=== PATIENT | male | born 1985 | race Caucasian/White ===

== ENCOUNTER 2019-09-21 23:16 | Emergency (ER) | payer OTHER ==
[2019-09-21 23:24] VITALS: PULSE 70; RESP 20; TEMP 98
[2019-09-21 23:30] VITALS: BP 157/90
[2019-09-21] MEDS ORDERED: LIDOCAINE 4% CREAM 5 GM TUBE TOPICAL ONE (23:37)
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
[2019-09-21 23:44] LABS: Basophils # (A) 0.1 k/uL (0-0.2); Basophils % (A) 0 %; Eosinophils # (A) 0.2 k/uL (0-0.7); Eosinophils % (A) 2 %; HCT 47.1 % (39.0-53.0); HGB 15.3 gm/dL (13.0-17.5); Lymphocytes # (A) 3.3 k/uL (1.0-4.8); Lymphocytes % (A) 29 %; MCHC 32.4 g/dL (31.0-37.0); MCV 92.7 fL (80.0-100.0); Mean Platelet Volume 10.4; Monocytes # (A) 0.4 k/uL (0-1.0); Monocytes % (A) 3 %; Neutrophils # (A) 7.3 k/uL (1.3-7.7); Neutrophils % (A) 64 %; Platelet Count 136 k/uL (150-450); RBC 5.09 m/uL (4.30-5.90); RDW 13.7 % (11.5-15.5); WBC 11.3 k/uL (3.8-10.6)
[2019-09-21 23:53] LABS: ALT 58 U/L (4-49); AST 47 U/L (17-59); African American GFR (CKD) >90 (>60 ml/min/1.73 sqM); Albumin 4.5 g/dL (3.5-5.0); Alcohol <10 mg/dL; Alkaline Phosphatase 69 U/L (38-126); Amylase 49 U/L (30-110); Anion Gap 9 mmol/L; Blood Urea Nitrogen 10 mg/dL (9-20); Calcium 9.5 mg/dL (8.4-10.2); Carbon Dioxide 23 mmol/L (22-30); Chloride 110 mmol/L (98-107); Glucose 132 mg/dL (74-99); Non-African American GFR(CKD) >90 (>60 ml/min/1.73 sqM); Potassium 3.5 mmol/L (3.5-5.1); Sodium 142 mmol/L (137-145); Total Bilirubin 0.4 mg/dL (0.2-1.3); Total Protein 7.2 g/dL (6.3-8.2)
[2019-09-22 00:03] LABS: INR 0.9 (<1.2); Prothrombin Time 9.9 sec (9.0-12.0)
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
[2019-09-22 00:08] LABS: Partial Thromboplastin Time 21.8 sec (22.0-30.0)
[2019-09-22 01:06] LABS: Appearance,Urine Clear (Clear); Bilirubin,Urine Negative (Negative); Blood,Urine Moderate (Negative); Budding Yeast,Urine Few /hpf; Color,Urine Yellow; Glucose,Urine (UA) Negative (Negative); Granular Casts,Urine 91 /lpf (0); Hyaline Casts,Urine 1 /lpf (0-2); Ketones,Urine Trace (Negative); Leukocyte Esterase,Urine Negative (Negative); Mucus,Urine Few /hpf; Nitrite,Urine Negative (Negative); PH, Urine 5.5 (5.0-8.0); Protein,Urine 1+ (Negative); RBC,Urine 115 /hpf (0-5); Specific Gravity,Urine 1.031 (1.001-1.035); Squamous Epithelial Cell,Urine <1 /hpf (0-4); Urobilinogen,Urine <2.0 mg/dL (<2.0); WBC,Urine 11 /hpf (0-5)
[2019-09-22] MEDS ORDERED: LIDOCAINE 1% INJ 10MG/ML (20 ML MDV) SQ ONE (01:16)
[2019-09-22] MEDS ORDERED: DIPH,PERTUS(ACELL)TETVAC-LF 0.5 ML VIAL IM ONE (01:16)
[2019-09-22 01:18] LABS: Amphetamine Screen,Urine Not Detected (NotDetected); Barbiturate Screen,Urine Not Detected (NotDetected); Benzodiazepines Screen,Urine Not Detected (NotDetected); Cocaine Screen,Urine Not Detected (NotDetected); Methadone Screen, Urine Not Detected (NotDetected); Opiate Screen,Urine Not Detected (NotDetected); Oxycodone Screen, Urine Not Detected (NotDetected); Phencyclidine Screen,Urine Not Detected (NotDetected); Tricyclic Antidepressant,Urine Not Detected (NotDetected); Urn Cannabinoid Scrn Detected (NotDetected)
== END 2019-09-22 03:10 | disposition home or self-care (01) ==
LOC: EC 23:16
DX: S51.811A Laceration without foreign body of right forearm, initial encounter (principal); S01.111A Laceration without foreign body of right eyelid and periocular area, initial encounter; S50.812A Abrasion of left forearm, initial encounter; R31.9 Hematuria, unspecified; F17.200 Nicotine dependence, unspecified, uncomplicated; Z88.6 Allergy status to analgesic agent; V28.4XXA Motorcycle driver injured in noncollision transport accident in traffic accident, initial encounter; Y92.410 Unspecified street and highway as the place of occurrence of the external cause
CPT/HCPCS: 99284; 12001; 12013; 90471; 36415; 93005; 86900; 86901; 80053; 82150; 83605; 83690; 84484; 85025; 85610; 85730; 86850; 81001; 80306; 80320; 71045; 90715; J2001

== ENCOUNTER 2021-03-02 11:16 | Emergency (ER) | payer OTHER ==
[2021-03-02 13:01] VITALS: BP 91/54; PULSE 78; TEMP 98.5
--- NOTE | 2021-03-02 14:03 | ED ---
URI HPI - General Chief Complaint: Upper Respiratory Infection Stated Complaint: Covid test, cough Time Seen by Provider: 03/02/21 13:42 Source: patient, RN notes reviewed Mode of arrival: ambulatory Limitations: no limitations - History of Present Illness Initial Comments: 35-year-old male presents emergency dept chief complaint of cough congestion. Patient's been sick for 1 week not showing any improvement. No fevers no sick contacts presents with multiple [id number] cough and cold medication with no relief. Patient's concerned about COVID-19. Patient denies any nausea vomiting diarrhea constipation. - Related Data Previous Rx's Medication Instructions Recorded HYDROcodone/APAP 5-325MG [[place] 5] 1 each PO Q4HR PRN #20 tab 11/10/15 Orphenadrine [Norflex] 100 mg PO Q12H PRN #12 tablet.er 11/10/15 Amoxicillin/Potassium Clav 1 tab PO Q12HR #20 tab 03/02/21 [Augmentin 875-125 Tablet] Fluticasone Nasal [place] [Flonase 2 spr EA NOSTRIL DAILY #16 gm 03/02/21 Nasal [place]] Pseudoephedrine 12Hr [Sudafed 12Hr] 120 mg PO Q12H #20 tab 03/02/21 Allergies Allergy/AdvReac Type Severity Reaction Status Date / Time aspirin AdvReac Rash/Hives Verified 03/02/21 13:01 Review of Systems ROS Statement: Those systems with pertinent positive or pertinent negative responses have been documented in the HPI. ROS Other: All systems not noted in ROS Statement are negative. Past Medical History Additional Past Medical History / Comment(s): back pain History of Any Multi-Drug Resistant Organisms: None Reported Past Surgical History: Hernia Repair Past Psychological History: Depression Smoking Status: Current every day smoker Past Alcohol Use History: Occasional Past Drug Use History: Marijuana General Exam Limitations: no limitations General appearance: alert, in no apparent distress Head exam: Present: atraumatic, normocephalic, normal inspection Eye exam: Present: normal appearance, PERRL, EOMI. Absent: scleral icterus, conjunctival injection, periorbital swelling ENT exam: Present: normal exam, normal oropharynx, mucous membranes moist Neck exam: Present: normal inspection. Absent: tenderness, meningismus, lymphadenopathy Respiratory exam: Present: rhonchi. Absent: normal lung sounds bilaterally, respiratory distress, wheezes, rales, stridor Cardiovascular Exam: Present: regular rate, normal rhythm, normal heart sounds. Absent: systolic murmur, diastolic murmur, rubs, gallop, clicks Course Vital Signs 03/02/21 12:58 Temperature 98.5 F Pulse Rate 78 Respiratory 18 Rate Blood Pressure 91/54 O2 Sat by Pulse 98 Oximetry Medical Decision Making - Medical Decision Making Patient is a no signs of distress, patient was treated for acute sinusitis covid 19 is negative. Patient agrees this plan for close follow-up return parameters were discussed. - Lab Data Lab Results 03/02/21 Range/Units 13:06 Coronavirus (PCR) Not Detected (Not Detectd) Disposition Clinical Impression: Acute upper respiratory infection Disposition: HOME SELF-CARE Condition: Stable Instructions (If sedation given, give patient instructions): Upper Respiratory Infection (ED) Additional Instructions: Please return to the Emergency Department if symptoms worsen or any other concerns. Prescriptions: Amoxicillin/Potassium Clav [Augmentin 875-125 Tablet] 1 tab PO Q12HR #20 tab Fluticasone Nasal [place] [Flonase Nasal [place]] 2 spr EA NOSTRIL DAILY #16 gm Pseudoephedrine 12Hr [Sudafed 12Hr] 120 mg PO Q12H #20 tab Is patient prescribed a controlled substance at d/c from ED?: No Referrals: None,Stated [Primary Care Provider] - 1-2 days Time of Disposition: 14:03
[2021-03-02 14:17] VITALS: RESP 20
== END 2021-03-02 14:32 | disposition home or self-care (01) ==
LOC: EC 11:16
DX: J06.9 Acute upper respiratory infection, unspecified (principal); Z20.822 Contact with and (suspected) exposure to COVID-19; F17.200 Nicotine dependence, unspecified, uncomplicated; F12.90 Cannabis use, unspecified, uncomplicated
CPT/HCPCS: 87635; 99283

== ENCOUNTER 2021-12-03 09:49 | Emergency (ER) | payer OTHER ==
[2021-12-03 10:03] VITALS: BP 144/90; PULSE 80; RESP 18; TEMP 97.5
[2021-12-03] MEDS ORDERED: MORPHINE SULFATE 4 MG/ML SYRINGE IM STA (13:09)
--- NOTE | 2021-12-03 13:48 | XR ---
EXAMINATION TYPE: XR ankle complete LT, XR foot complete LT DATE OF EXAM: 12/03/2021 CLINICAL HISTORY: Pain and swelling. TECHNIQUE: Frontal, lateral and oblique images of the left ankle and foot are obtained. COMPARISON: None. FINDINGS: There is no acute fracture/dislocation evident in the left ankle. The ankle mortise appea rs within normal limits. Small spur posterior superior aspect calcaneus. The overlying soft tissue ap pears unremarkable. There is no acute fracture or dislocation evident in the left foot. The joint spaces in the left mariajose t are preserved. Overlying soft tissue is unremarkable. IMPRESSION: As above.
[2021-12-03] MEDS ORDERED: ACET/COD 300 MG/30 MG STARTER PACK 6 TAB BTL PO STA (14:09)
--- NOTE | 2021-12-03 14:10 | ED ---
Lower Extremity Injury HPI - General Chief Complaint: Extremity Injury, Lower Stated Complaint: L foot swelling Time Seen by Provider: 12/03/21 12:33 Source: patient, family Mode of arrival: wheelchair Limitations: no limitations - History of Present Illness Initial Comments: Patient is a 36-year-old male who presents to the emergency department with a c hief complaint of left foot pain. Patient states he got a new job one week ago which requires him to stand on his feet for long time. Patient states the pain has been occurring for about 5 days, severe in nature. Reports pain all over his foot with some swelling. Denies injury. Denies numbness and tingling. Denies fever, chills, history of cellulitis. - Related Data Previous Rx's Medication Instructions Recorded HYDROcodone/APAP 5-325MG [[place] 5] 1 each PO Q4HR PRN #20 tab 11/10/15 Orphenadrine [Norflex] 100 mg PO Q12H PRN #12 tablet.er 11/10/15 Amoxicillin/Potassium Clav 1 tab PO Q12HR #20 tab 03/02/21 [Augmentin 875-125 Tablet] Fluticasone Nasal [place] [Flonase 2 spr EA NOSTRIL DAILY #16 gm 03/02/21 Nasal [place]] Pseudoephedrine 12Hr [Sudafed 12Hr] 120 mg PO Q12H #20 tab 03/02/21 predniSONE 50 mg PO DAILY #5 tab 12/03/21 Allergies Allergy/AdvReac Type Severity Reaction Status Date / Time aspirin AdvReac Rash/Hives Verified 12/03/21 10:03 Review of Systems ROS Statement: Those systems with pertinent positive or pertinent negative responses have been documented in the HPI. ROS Other: All systems not noted in ROS Statement are negative. Past Medical History Additional Past Medical History / Comment(s): back pain History of Any Multi-Drug Resistant Organisms: None Reported Past Surgical History: Hernia Repair Past Psychological History: Depression Smoking Status: Current every day smoker Past Alcohol Use History: None Reported Past Drug Use History: None Reported General Exam Limitations: no limitations General appearance: alert, in no apparent distress Eye exam: Present: normal appearance, PERRL, EOMI. Absent: scleral icterus, conjunctival injection, periorbital swelling Respiratory exam: Present: normal lung sounds bilaterally. Absent: respiratory distress, wheezes, rales, rhonchi, stridor Cardiovascular Exam: Present: regular rate, normal rhythm, normal heart sounds. Absent: systolic murmur, diastolic murmur, rubs, gallop, clicks Left Lower Leg exam: Present: normal inspection, full ROM. Absent: tenderness, swelling, Homans' sign Ankle exam: Present: normal inspection, full ROM. Absent: tenderness, swelling Foot/Toe exam: Present: normal inspection, full ROM, swelling (minimal ). Absent: tenderness, abrasion, laceration, ecchymosis, deformity, crepitus, dislocation, erythema, puncture wound Neurovascular tendon exam: Present: no vascular compromise. Absent: motor deficit, sensory deficit, tendon deficit, pallor, foot drop Gait: observed and normal Course Vital Signs 12/03/21 10:00 Temperature 97.5 F L Pulse Rate 80 Respiratory 18 Rate Blood Pressure 144/90 O2 Sat by Pulse 98 Oximetry Medical Decision Making - Medical Decision Making This is a 36-year-old male who presents with left foot pain. Thorough history and examination were performed. The left foot is minimally swollen. There is no erythema or warmth. There is no tenderness with palpation. X-ray is negative for acute process. At this time there is no definite etiology of patient's symptoms. Possibly due to continuous standing. Patient will be discharged with Tylenol 3 starter pack for pain and prednisone for swelling. RICE education provided in detail. Patient follow-up with primary care provider. Dr. Carrizales is my attending. Disposition Clinical Impression: Left foot pain, Swelling of left foot Disposition: HOME SELF-CARE Condition: Good Instructions (If sedation given, give patient instructions): P.R.I.C.E. Treatment (ED) Additional Instructions: Take medication as directed. Continue to elevate, rest, and ice the left foot. Follow up with primary care provider in one to 2 days may refer you to hr internship. Return to the emergency department if you experience new, concerning, or worsening symptoms. Prescriptions: predniSONE 50 mg PO DAILY #5 tab Is patient prescribed a controlled substance at d/c from ED?: No Referrals: None,Stated [Primary Care Provider] - 1-2 days Time of Disposition: 14:10
== END 2021-12-03 14:33 | disposition home or self-care (01) ==
LOC: EC 09:49
DX: M79.672 Pain in left foot (principal); M79.89 Other specified soft tissue disorders; F17.200 Nicotine dependence, unspecified, uncomplicated; Z88.6 Allergy status to analgesic agent; X50.1XXA Overexertion from prolonged static or awkward postures, initial encounter; Y99.0 Civilian activity done for income or pay
CPT/HCPCS: 73610; 73630; 99283; 96372; J2270

== ENCOUNTER 2022-04-28 09:02 | Emergency (ER) | payer OTHER ==
[2022-04-28 09:07] VITALS: RESP 18; TEMP 97.9
[2022-04-28] MEDS ORDERED: methylPREDNISolone SOD SUCCI 125 MG/2 ML VIAL IM ONE (09:17)
[2022-04-28] MEDS ORDERED: ORPHENADRINE 30 MG/ML 2 ML VIAL IM STA (09:17)
--- NOTE | 2022-04-28 09:18 | ED ---
Back Pain HPI - General Chief Complaint: Back Pain/Injury Stated Complaint: Back pain Time Seen by Provider: 04/28/22 09:10 Source: patient, family, RN notes reviewed Limitations: no limitations - History of Present Illness Initial Comments: Patient is a 36-year-old man presenting to the emergency room with complaints of low back pain with radiation into the left leg worse with ambulation. The pain has been ongoing for 3-4 days and is not responding to [id number] medication of Tylenol orally. He denies any trauma or injury. He does report a history of previous back issues but has lost his insurance consequently he is no longer following with his primary care provider or previous grocery specialist. He denies any focal neurological deficits, lower extremity weakness, range of motion impairment not directly related pain, bowel or bladder incontinence, saddle parasethesia or other red flag symptoms for cauda equina. Besides his previous history of back pain he denies any other significant past medical history. - Related Data Home Medications Medication Instructions Recorded Confirmed Acetaminophen Tab [Tylenol Tab] 1,000 mg PO Q4-6H PRN 04/28/22 04/28/22 Flexeril(Unknown Dose) 1 tab PO DAILY PRN 04/28/22 04/28/22 Naproxen Sodium [Aleve] 220 mg PO Q8H PRN 04/28/22 04/28/22 Previous Rx's Medication Instructions Recorded predniSONE [Deltasone] 20 mg PO BID 5 Days #10 tab 04/28/22 Allergies Allergy/AdvReac Type Severity Reaction Status Date / Time aspirin AdvReac Light Verified 04/28/22 10:35 headed Review of Systems ROS Statement: Those systems with pertinent positive or pertinent negative responses have been documented in the HPI. ROS Other: All systems not noted in ROS Statement are negative. Past Medical History Additional Past Medical History / Comment(s): back pain History of Any Multi-Drug Resistant Organisms: None Reported Past Surgical History: Hernia Repair Past Psychological History: Depression Smoking Status: Current every day smoker Past Alcohol Use History: None Reported Past Drug Use History: None Reported General Exam - General Exam Comments Initial Comments: GENERAL: No acute distress, well developed, well nourished. Obese. HEENT: Normocephalic, atraumatic. Pupils equal, round, reactive to light. Moist mucous membranes. LUNGS: No respiratory distress or use of accessory muscles. HEART: Regular rate.. ABDOMEN: Non-distended. BACK: Normal inspection. Lower back tenderness. No point vertebral tenderness or muscle spasms. Full range of motion. EXTREMITIES: No edema. No tenderness. Moves all extremities. NEUROLOGIC: Alert & oriented x 3. CN II-XII grossly intact. PSYCHIATRIC: Normal affect and behavior. DERMATOLOGIC: Skin intact, without rashes or lesions noted. Limitations: no limitations Course Vital Signs 04/28/22 04/28/22 09:03 10:56 Temperature 97.9 F 97.9 F Pulse Rate 84 91 Respiratory 18 18 Rate Blood Pressure 168/111 145/103 O2 Sat by Pulse 97 100 Oximetry Medical Decision Making - Medical Decision Making Was pt. sent in by a medical professional or institution (, PA, ACTUARIAL ASSISTANT, urgent care, hospital, or retirement...) When possible be specific @ -No Did you speak to anyone other than the patient for history (EMS, parent, family, police, friend...)? What history was obtained from this source @ -Mother Did you review nursing and triage notes (agree or disagree)? Why? @ -I reviewed and agree with nursing and triage notes Were old charts reviewed (outside hosp., previous admission, EMS record, old EKG, old radiological studies, urgent care reports/EKG's, retirement records)? Report findings @ -No old charts were reviewed Differential Diagnosis (chest pain, altered mental status, abdominal pain women, abdominal pain men, vaginal bleeding, weakness, fever, dyspnea, syncope, headache, dizziness, GI bleed, back pain, seizure, CVA, palpatations, mental health)? @ -Differential Back Pain: Strain, zoster, cauda equina syndrome, epidural abscess, vertebral osteomyelitis, discitis, fracture, subluxation, disc herniation, DJD, spinal stenosis, dissection, AAA, pancreatitis, peptic ulcer disease, pyelonephritis, kidney stone, this is not meant to be an all-inclusive list. EKG interpreted by me (3pts min.). @ -None done X-rays interpreted by me (1pt min.). @ -None done CT interpreted by me (1pt min.). @ -None done U/S interpreted by me (1pt. min.). @ -None done What testing was considered but not performed or refused? (CT, X-rays, U/S, labs)? Why? @ -None What meds were considered but not given or refused? Why? @ -None Did you discuss the management of the patient with other professionals (professionals i.e. , PA, ACTUARIAL ASSISTANT, lab, RT, psych nurse, sexual assault social worker, private sector executive, teacher, chief innovation officer, corrections caseworker)? Give summary @ -No Was smoking cessation discussed for >3mins.? @ -No Was critical care preformed (if so, how long)? @ -No Were there social determinants of health that impacted care today? How? (Homelessness, low income, unemployed, alcoholism, drug addiction, transportation, low edu. Level, literacy, decrease access to med. care, fdc, rehab)? @ -Lack of medical insurance preventing follow-up with health care. Reports insurance effective next month. Encouraged establishing with primary care provider. Was there de-escalation of care discussed even if they declined (Discuss DNR or withdrawal of care, Hospice)? DNR status @ -No What co-morbidities impacted this encounter? (DM, HTN, Smoking, COPD, CAD, Cancer, CVA, ARF, Chemo, Hep., AIDS, mental health diagnosis, sleep apnea, morbid obesity)? @ -History of back pain Was patient admitted / discharged? Hospital course, mention meds given and route, prescriptions, significant lab abnormalities, going to OR and other pertinent info. @ -Through 6-year-old man presenting to the emergency room with lower back pain with left sciatica ongoing for 3-4 days without trauma or response to oral analgesics at home. No red flag symptoms of cauda equina. No indication for diagnostic imaging or laboratory studies. Will give Solu-Medrol and Norflex and monitor response. Pain persists but improved after medications. Will give Flexeril starter pack to utilize for muscle spasms in addition to burst course of prednisone. Educated regarding avoidance of NSAIDs while on prednisone and to utilize [id number] Tylenol for pain if needed. Encouraged range of motion as tolerated, avoidance of bedrest and weight loss. Questions and concerns answered. Return parameters to the emergency room discussed. Will discharge home in stable condition with Flexeril and prednisone to treat acute on chronic lower back pain along with follow-up with newly established primary care provider. Undiagnosed new problem with uncertain prognosis? @ -No Drug Therapy requiring intensive monitoring for toxicity (Heparin, Nitro, Insulin, Cardizem)? @ -No Were any procedures done? @ -No Diagnosis/symptom? @ -Low back pain with left-sided sciatica Acute, or Chronic, or Acute on Chronic? @ -Acute on chronic Uncomplicated (without systemic symptoms) or Complicated (systemic symptoms)? @ -Uncomplicated Side effects of treatment? @ -No Exacerbation, Progression, or Severe Exacerbation? @ -No Poses a threat to life or bodily function? How? (Chest pain, [place], [place], pneumonia, PE, COPD, DKA, ARF, appy, cholecystitis, CVA, Diverticulitis, Homicidal, Suicidal, threat to staff... and all critical care pts) @ -No Case discussed with Dr. Marlow. Disposition Clinical Impression: Low back pain with left-sided sciatica Disposition: HOME SELF-CARE Condition: Stable Instructions (If sedation given, give patient instructions): Lumbar Radiculopathy (ED), Lower Back Exercises (ED) Additional Instructions: Please take prednisone as prescribed. May utilize Tylenol [id number] for pain while taking prednisone do not take any other anti-inflammatories such as Motrin or Aleve. Application of ice encouraged. Avoid bed rest and heavy lifting. Low back range of motion exercises encouraged. Please establish with an follow-up with a primary care provider.Please return to the Emergency Department if symptoms worsen or any other concerns. Prescriptions: predniSONE [Deltasone] 20 mg PO BID 5 Days #10 tab Is patient prescribed a controlled substance at d/c from ED?: No Referrals: None,Stated [Primary Care Provider] - 1-2 days Time of Disposition: 10:50
[2022-04-28 10:57] VITALS: BP 145/103; PULSE 91
== END 2022-04-28 10:57 | disposition home or self-care (01) ==
LOC: EC 09:02
DX: M54.42 Lumbago with sciatica, left side (principal); F32.A Depression, unspecified; F17.200 Nicotine dependence, unspecified, uncomplicated; Z79.52 Long term (current) use of systemic steroids; Z88.6 Allergy status to analgesic agent
CPT/HCPCS: 99283; 96372 ×2; J2360; J2930

== ENCOUNTER 2024-08-24 11:28 | Emergency (ER) | payer OTHER ==
--- NOTE | 2024-08-24 12:04 | ED ---
Back Pain HPI - General Chief Complaint: Back Pain/Injury Stated Complaint: back pain Time Seen by Provider: 08/24/24 11:47 Source: patient, RN notes reviewed Limitations: no limitations - History of Present Illness Initial Comments: This is a 38-year-old male with history of low back pain presenting for left low back pain (/10) x 7 days. Patient states he went to urgent care and Tuesday but was unable to receive medication due to associated hypertension. Denies recent trauma to low back, stating he normally has low back pain at least once annually. Patient states pain radiates to left knee that worsens with movement and bending forward. Endorses use of Tylenol/ibuprofen, lidocaine patch and heat with minimal relief. Denies saddle paresthesia, urinary incontinence /retention. Patient also notes a cyst on the back of his right shoulder that has been present for years and has been getting bigger recently. MD Complaint: back pain - Related Data Home Medications Medication Instructions Recorded Confirmed Acetaminophen Tab [Tylenol Tab] 1,000 mg PO Q4-6H PRN 04/28/22 04/28/22 Flexeril(Unknown Dose) 1 tab PO DAILY PRN 04/28/22 04/28/22 Naproxen Sodium [Aleve] 220 mg PO Q8H PRN 04/28/22 04/28/22 Previous Rx's Medication Instructions Recorded predniSONE [Deltasone] 20 mg PO BID 5 Days #10 tab 04/28/22 Lidocaine 5% Patch [Lidoderm 5% 1 patch TOPICAL DAILY #30 patch 10/25/22 Patch] predniSONE [Deltasone] 20 mg PO BID #10 tab 10/25/22 Allergies Allergy/AdvReac Type Severity Reaction Status Date / Time aspirin AdvReac Light Verified 08/24/24 11:49 headed Review of Systems ROS Statement: Those systems with pertinent positive or pertinent negative responses have been documented in the HPI. ROS Other: All systems not noted in ROS Statement are negative. Past Medical History Additional Past Medical History / Comment(s): back pain History of Any Multi-Drug Resistant Organisms: None Reported Past Surgical History: Hernia Repair Past Psychological History: Depression Smoking Status: Current every day smoker Past Alcohol Use History: None Reported Past Drug Use History: Marijuana General Exam Limitations: no limitations General appearance: alert, in no apparent distress Head exam: Present: atraumatic, normocephalic, normal inspection Eye exam: Present: normal appearance, PERRL, EOMI. Absent: scleral icterus, conjunctival injection, periorbital swelling ENT exam: Present: normal exam, mucous membranes moist Neck exam: Present: normal inspection. Absent: tenderness, meningismus, lymphadenopathy Respiratory exam: Present: normal lung sounds bilaterally. Absent: respiratory distress, wheezes, rales, rhonchi, stridor, accessory muscle use, decreased breath sounds, prolonged expiratory Cardiovascular Exam: Present: regular rate, normal rhythm, normal heart sounds. Absent: systolic murmur, diastolic murmur, rubs, gallop, clicks GI/Abdominal exam: Present: soft, normal bowel sounds. Absent: distended, tenderness, guarding, rebound, rigid Extremities exam: Present: normal inspection, full ROM, normal capillary refill. Absent: tenderness, pedal edema, joint swelling, calf tenderness Back exam: Present: muscle spasm, paraspinal tenderness (Positive for left paralumbar and superior gluteal muscle spasm and point tenderness.), vertebral tenderness (Positive lumbar vertebral tenderness without crepitus or step-off.). Absent: full ROM, CVA tenderness (R), CVA tenderness (L) Neurological exam: Present: alert, oriented X3, CN II-XII intact Psychiatric exam: Present: normal affect, normal mood Skin exam: Present: warm, dry, intact, normal color. Absent: rash Course Vital Signs 08/24/24 08/24/24 11:47 14:02 Temperature 99 F 98 F Pulse Rate 83 86 Respiratory 20 18 Rate Blood Pressure 173/120 178/114 O2 Sat by Pulse 98 97 Oximetry Medical Decision Making - Medical Decision Making Was pt. sent in by a medical professional or institution (, PA, TRUCK ENGINE TECHNICIAN, urgent care, hospital, or fpc...) When possible be specific @ -[No] Did you speak to anyone other than the patient for history (EMS, parent, family, police, friend...)? What history was obtained from this source @ -[No] Did you review nursing and triage notes (agree or disagree)? Why? @ -[I reviewed and agree with nursing and triage notes] Were old charts reviewed (outside hosp., previous admission, EMS record, old EKG, old radiological studies, urgent care reports/EKG's, fpc records)? Report findings @ -[No old charts were reviewed] Differential Diagnosis (chest pain, altered mental status, abdominal pain women, abdominal pain men, vaginal bleeding, weakness, fever, dyspnea, syncope, headache, dizziness, GI bleed, back pain, seizure, CVA, palpatations, mental health, musculoskeletal)? @ -Differential Back Pain: Strain, zoster, cauda equina syndrome, epidural abscess, vertebral osteomyelitis, discitis, fracture, subluxation, disc herniation, DJD, spinal stenosis, dissection, AAA, pancreatitis, peptic ulcer disease, pyelonephritis, kidney stone, this is not meant to be an all-inclusive list. EKG interpreted by me (3pts min.). @ -Not done X-rays interpreted by me (1pt min.). @ -[None done] CT interpreted by me (1pt min.). @ -[None done] U/S interpreted by me (1pt. min.). @ -[None done] What testing was considered but not performed or refused? (CT, X-rays, U/S, labs)? Why? @ -[None] What meds were considered but not given or refused? Why? @ -[None] Did you discuss the management of the patient with other professionals (professionals i.e. , PA, TRUCK ENGINE TECHNICIAN, lab, RT, psych nurse, outreach and education social worker, bag end sewer, teacher, tactical deception plans officer, mattress spring encaser)? Give summary @ -[No] Was smoking cessation discussed for >3mins.? @ -[No] Was critical care preformed (if so, how long)? @ -[No] Were there social determinants of health that impacted care today? How? (Homelessness, low income, unemployed, alcoholism, drug addiction, transportation, low edu. Level, literacy, decrease access to med. care, custodial, rehab)? @ -[No] Was there de-escalation of care discussed even if they declined (Discuss DNR or withdrawal of care, Hospice)? DNR status @ -[No] What co-morbidities impacted this encounter? (DM, HTN, Smoking, COPD, CAD, Cancer, CVA, ARF, Chemo, Hep., AIDS, mental health diagnosis, sleep apnea, morbid obesity)? @ -[None] Was patient admitted / discharged? Hospital course, mention meds given and route, prescriptions, significant lab abnormalities, going to OR and other pertinent info. @ -[hospital course] Undiagnosed new problem with uncertain prognosis? @ -[No] Drug Therapy requiring intensive monitoring for toxicity (Heparin, Nitro, Insulin, Cardizem)? @ -[No] Were any procedures done? @ -[No] Diagnosis/symptom? @ -Mechanical back pain, sciatica, subcutaneous cyst/mass Acute, or Chronic, or Acute on Chronic? @ -Acute Uncomplicated (without systemic symptoms) or Complicated (systemic symptoms)? @ -Uncomplicated Side effects of treatment? @ -[No] Exacerbation, Progression, or Severe Exacerbation? @ -Severe exacerbation Poses a threat to life or bodily function? How? (Chest pain, [place], [place], pneumonia, PE, COPD, DKA, ARF, appy, cholecystitis, CVA, Diverticulitis, Homicidal, Suicidal, threat to staff... and all critical care pts) @ -[No] Disposition Clinical Impression: Mechanical back pain, Subcutaneous mass of back Disposition: HOME SELF-CARE Condition: Fair Instructions (If sedation given, give patient instructions): Acute Low Back Pain (ED) Additional Instructions: Warm compress/heating pad to affected area for 10 minutes up to 4 times daily. Gentle stretching massage also recommended. Alternate Tylenol/Motrin every 4 hours for pain. Follow-up with PCP/dermatology for mass on upper back. Follow- up with orthospine for lower back pain. Is patient prescribed a controlled substance at d/c from ED?: No Referrals: None,Stated [Primary Care Provider] - 1-2 days Lianet Bravo DO [Doctor of Osteopathic Medicine] - 1-2 days Swetha Martinez MD [STAFF PHYSICIAN] - 1-2 days Time of Disposition: 14:08
--- NOTE | 2024-08-24 13:32 | XR ---
EXAMINATION TYPE: XR lumbar spine 3V DATE OF EXAM: 08/24/2024 1:22 PM COMPARISON: None CLINICAL INDICATION: Male, 38 years old with history of Left low back pain with radiculopathy; PHH, p ain FINDINGS: Slight leftward retropulsion. 5 lumbar type vertebral bodies. Mild degenerative disc space narrowing L4-L5 and L5-S1. Suggestion of mild bulging disc L3-L4 as well. Mild facet arthropathy lower lumbar s pine. Vertebral body heights are preserved and alignment is maintained. Slight posterior angulation near the sacrococcygeal junction incidentally noted on the lateral view. IMPRESSION: 1. Mild to moderate degenerative disc disease lower lumbar spine. 2. Mild facet arthropathy lower lumbar spine. 3. No vertebral compression collapse or malalignment. 4. Slight posterior angulation near the sacrococcygeal junction incidentally noted on the lateral vie w. Correlate for possible age indeterminate tail bone fracture. [facility], Workstation: [id number], 08/24/2024 1:30 PM
[2024-08-24] MEDS: LIDOCAINE 4% PATCH TOPICAL ONE (14:11)
[2024-08-24] MEDS: ACETAMINOPHEN TAB 500 MG TAB PO STA (14:12)
[2024-08-24] MEDS: HYDROmorphone 1 MG/ML 1 ML SYRINGE IM STA (14:13)
[2024-08-24] MEDS: KETOROLAC 15 MG/ML 1 ML VIAL IVP STA (14:15)
[2024-08-24 14:24] VITALS: RESP 18; TEMP 98
[2024-08-24] MEDS: traMADol 50 MG STARTER PACK 3 TAB BTL PO STA (14:47)
[2024-08-24 14:53] VITALS: BP 154/101; PULSE 76
== END 2024-08-24 14:53 | disposition home or self-care (01) ==
LOC: EC 11:28
DX: M54.50 Low back pain, unspecified (principal); R22.9 Localized swelling, mass and lump, unspecified; F17.200 Nicotine dependence, unspecified, uncomplicated; Z88.6 Allergy status to analgesic agent
CPT/HCPCS: 72100; 99283; 96374; 96372; J1171; J1885